=== PATIENT | male | born 1985 | race Caucasian/White ===

== ENCOUNTER 2020-07-27 23:52 | Emergency (ER) | payer MEDICAID ==
[~2020-07-27] VITALS: Ht 172.7 cm; Wt 79.6 kg
[2020-07-27 23:53] VITALS: BP 123/78
--- NOTE | 2020-07-28 00:03 | NUR ---
erp at bedside
== END 2020-07-28 00:28 | disposition home or self-care (01) ==
LOC: ED 07-28 00:20
DX: L03.115 Cellulitis of right lower limb (principal); L02.611 Cutaneous abscess of right foot; F17.210 Nicotine dependence, cigarettes, uncomplicated
CPT/HCPCS: 99283; 99406